=== PATIENT | male | born 1975 | race African-American/Black ===

== ENCOUNTER 2018-07-03 10:09 | Emergency (ER) | payer SELFPAY ==
[2018-07-03] MEDS ORDERED: Acetaminophen 500 MG TAB ONE (10:48)
== END 2018-07-03 11:52 | disposition home or self-care (01) ==
LOC: ERS 10:09
DX: J11.1 Influenza due to unidentified influenza virus with other respiratory manifestations (principal); F31.9 Bipolar disorder, unspecified; F17.210 Nicotine dependence, cigarettes, uncomplicated
CPT/HCPCS: 87804; 99283

== ENCOUNTER → 2018-10-25 | Emergency (ER) | payer SELFPAY ==
[~2018-10-25] MED LIST: Acetaminophen 500 MG TAB ONE; Ibuprofen 200 MG TAB ONE; Lorazepam 1 MG TAB ONE; Lorazepam 2 MG/ML VIAL ONE; Nicotine 7 MG PATCH TOP SCH; Nortriptyline HCl 25 MG CAP PO SCH; OXcarbazepine 300 MG TAB PO SCH; hydrOXYzine 25 MG TAB ONE
[2018-10-25 11:40] LABS: #Basophils 0.1 thou/uL (0.0-0.2); #Eosinphils 0.1 thou/uL (0.0-0.7); #Lymphocytes 1.5 thou/uL (1.20-3.40); #Monocytes 0.5 thou/uL (0.11-0.59); #Neutrophils 3.9 thou/uL (1.40-6.50); %Basophils 0.9 % (0.0-1.0); %Eosinophils 2.4 % (0.0-10.0); %Lymphocytes 24.3 % (21.0-51.0); %Monocytes 8.5 % (0.0-10.0); %Neutrophils 63.9 % (42.0-75.0); Hemoglobin 15.3 g/dL (14.0-18.0); Mean Corpuscular HGB CONC 31.8 g/dL (32.0-36.0); Mean Corpuscular Hemoglobin 25.9 pg (27.0-31.0); Mean Corpuscular Volume 81.7 fL (78.0-98.0); Mean Platelet Volume 7.2 fL (7.4-10.4); Platelet Count 296 thou/uL (130-400); RBC Distribution Width 12.4 % (11.5-14.5); White Blood Cell (WBC) Count 6.1 thou/uL (4.8-10.8)
[2018-10-25 12:08] LABS: Bilirubin Small (Negative); Blood, Urine Negative (Negative); Clarity CLEAR (Clear); Glucose, Urine (Dipstick) Negative (Negative); Leukocyte Negative (Negative); Nitrite Negative (Negative); Protein, Urine (Dipstick) Negative (Neg-Trace)
[2018-10-25 12:09] LABS: ALT (SGPT) 18 U/L (8-55); AST (SGOT) 18 U/L (5-34); Acetaminophen Less than 6.0 mcg/mL (10.0-30.0); Albumin 4.2 g/dL (3.5-5.0); Alcohol Less than 10 mg/dL (Less than 10); Alkaline Phosphatase 79 U/L (40-150); Anion Gap 12 mmol/L (10-20); BUN (Urea Nitrogen) 6 mg/dL (8.9-20.6); Bilirubin, Total 0.5 mg/dL (0.2-1.2); CK (CPK) 284 U/L (30-200); Calc. Creatinine Clearance 0 mL/min (70-130); Calcium 9.7 mg/dL (7.8-10.44); Carbon Dioxide 28 mmol/L (22-29); Chloride 106 mmol/L (98-107); Estimated GFR-MDRD Greater than 90; Globulin 3.2 g/dL (2.4-3.5); Glucose 92 mg/dL (70-105); Potassium 3.7 mmol/L (3.5-5.1); Protein, Total 7.4 g/dL (6.0-8.3); Salicylate Less than 8.0 mg/dL (15.0-30.0); Sodium 142 mmol/L (136-145)
[2018-10-25 12:30] LABS: Amphetamine Not Detected (NotDetected); Barbiturates Screen Not Detected (NotDetected); Benzodiazepine Screen Not Detected (NotDetected); Cocaine Metabolite Screen Detected (NotDetected); Medtox Control Line Valid? VALID (VALID); Medtox Reader # READER 1; Methadone Not Detected (NotDetected); Methamphetamine Not Detected (NotDetected); Opiate Screen Not Detected (NotDetected); Oxycodone Screen Not Detected (NotDetected); Phencyclidine (PCP) Detected (NotDetected); THC/Cannabinoid Screen Detected (NotDetected); Tricyclic Screen Not Detected (NotDetected)
== END ==
LOC: ERS 10:48
DX: T42.72XA Poisoning by unspecified antiepileptic and sedative-hypnotic drugs, intentional self-harm, initial encounter (principal); F17.210 Nicotine dependence, cigarettes, uncomplicated; F31.9 Bipolar disorder, unspecified; Z79.899 Other long term (current) drug therapy
CPT/HCPCS: 36415; 80053; 80306; 80307; 81003; 82550; 84443; 85025; 93005; 96372; J2060

== ENCOUNTER 2019-04-28 09:26 | Emergency (ER) | payer SELFPAY ==
--- NOTE | 2019-04-28 10:18 | RAD ---
XR Hip Lt 2-3 View: 04/28/2019 9:55 AM CLINICAL INDICATION: Pain COMPARISON: None. FINDINGS: Fracture:No fracture. Arthropathy:Mild osteoarthritis Incidental findings:None of significance. IMPRESSION: 1. No acute osseous abnormality.
[2019-04-28 10:22] LABS: Bilirubin Negative (Negative); Blood, Urine Negative (Negative); Clarity Clear (Clear); Glucose, Urine (Dipstick) Normal (Negative); Leukocyte Negative Leu/uL (Negative); Nitrite Negative (Negative); Protein, Urine (Dipstick) Negative (Neg-Trace); Urobilinogen 3 mg/dL (Less than 2)
[2019-04-28] MEDS ORDERED: Ketorolac Tromethamine 30 MG/ML VIAL ONE (10:48)
== END 2019-04-28 10:54 | disposition home or self-care (01) ==
LOC: ERS 09:26
DX: M25.552 Pain in left hip (principal); F17.210 Nicotine dependence, cigarettes, uncomplicated
CPT/HCPCS: 81003; 96372; J1885

== ENCOUNTER 2019-05-19 09:23 | Emergency (ER) | payer SELFPAY ==
[2019-05-19 09:59] LABS: #Eosinphils 0.1 thou/uL (0.0-0.7); #Lymphocytes 0.8 thou/uL (1.20-3.40); #Monocytes 0.5 thou/uL (0.11-0.59); #Neutrophils 5.4 thou/uL (1.40-6.50); %Basophils 0.6 % (0.0-1.0); %Eosinophils 1.3 % (0.0-10.0); %Lymphocytes 12.2 % (21.0-51.0); %Monocytes 6.8 % (0.0-10.0); %Neutrophils 79.1 % (42.0-75.0); Hemoglobin 16.5 g/dL (14.0-18.0); Mean Corpuscular HGB CONC 33.3 g/dL (32.0-36.0); Mean Corpuscular Hemoglobin 26.6 pg (27.0-31.0); Mean Corpuscular Volume 79.8 fL (78.0-98.0); Mean Platelet Volume 7.4 fL (7.4-10.4); Platelet Count 279 thou/uL (130-400); Red Blood Cell (RBC) Count 6.19 mill/uL (4.70-6.10); White Blood Cell (WBC) Count 6.9 thou/uL (4.8-10.8)
[2019-05-19 10:18] LABS: ALT (SGPT) 18 U/L (8-55); AST (SGOT) 22 U/L (5-34); Acetaminophen Less than 6.0 mcg/mL (10.0-30.0); Albumin 4.3 g/dL (3.5-5.0); Alcohol Less than 10 mg/dL (Less than 10); Alkaline Phosphatase 94 U/L (40-110); Anion Gap 12 mmol/L (10-20); BUN (Urea Nitrogen) 8 mg/dL (8.9-20.6); Bilirubin, Total 0.5 mg/dL (0.2-1.2); Calc. Creatinine Clearance 0 mL/min (70-130); Calcium 9.4 mg/dL (7.8-10.44); Carbon Dioxide 26 mmol/L (22-29); Chloride 110 mmol/L (98-107); Estimated GFR-MDRD Greater than 90; Globulin 3.3 g/dL (2.4-3.5); Glucose 113 mg/dL (70-105); Potassium 3.8 mmol/L (3.5-5.1); Protein, Total 7.6 g/dL (6.0-8.3); Salicylate Less than 8.0 mg/dL (15.0-30.0); Sodium 144 mmol/L (136-145)
--- NOTE | 2019-05-19 10:31 | CT ---
Head CT without contrast 05/19/2019: COMPARISON: 08/25/2005 HISTORY: Altered mental status TECHNIQUE: Axial CT imaging at 5 mm intervals from vertex through skull base without contrast FINDINGS: Imaged paranasal sinuses/mastoid air cells well-aerated. No displaced calvarial fracture, i ntracranial hemorrhage, midline shift, or mass effect. IMPRESSION: No acute findings.
[2019-05-19 12:02] LABS: Amphetamine Detected (NotDetected); Barbiturates Screen Not Detected (NotDetected); Benzodiazepine Screen Not Detected (NotDetected); Cocaine Metabolite Screen Detected (NotDetected); Medtox Control Line Valid? VALID (VALID); Medtox Reader # READER 1; Methadone Not Detected (NotDetected); Methamphetamine Not Detected (NotDetected); Opiate Screen Not Detected (NotDetected); Oxycodone Screen Not Detected (NotDetected); Phencyclidine (PCP) Detected (NotDetected); THC/Cannabinoid Screen Not Detected (NotDetected); Tricyclic Screen Not Detected (NotDetected)
== END 2019-05-19 12:55 | disposition home or self-care (01) ==
LOC: ERS 09:23
DX: F19.20 Other psychoactive substance dependence, uncomplicated (principal); F32.9 Major depressive disorder, single episode, unspecified; F17.210 Nicotine dependence, cigarettes, uncomplicated; Z79.899 Other long term (current) drug therapy
CPT/HCPCS: 70450; 80053; 80306; 80307; 84443; 85025; 93005

== ENCOUNTER 2019-05-27 15:57 | Inpatient (IN) | payer SELFPAY ==
[2019-05-27] MEDS ORDERED: Lorazepam 2 MG/ML VIAL ONE (16:02)
[2019-05-27 16:31] LABS: #Eosinphils 0.1 thou/uL (0.0-0.7); #Monocytes 0.6 thou/uL (0.11-0.59); #Neutrophils 2.9 thou/uL (1.40-6.50); %Basophils 0.2 % (0.0-1.0); %Eosinophils 1.4 % (0.0-10.0); %Lymphocytes 21.9 % (21.0-51.0); %Monocytes 13.1 % (0.0-10.0); %Neutrophils 63.4 % (42.0-75.0); Hemoglobin 15.8 g/dL (14.0-18.0); Mean Corpuscular Hemoglobin 27.1 pg (27.0-31.0); Mean Corpuscular Volume 79.7 fL (78.0-98.0); Mean Platelet Volume 7.7 fL (7.4-10.4); Platelet Count 208 thou/uL (130-400); Red Blood Cell (RBC) Count 5.85 mill/uL (4.70-6.10); White Blood Cell (WBC) Count 4.5 thou/uL (4.8-10.8)
[2019-05-27 16:51] LABS: ALT (SGPT) 23 U/L (8-55); AST (SGOT) 25 U/L (5-34); Alkaline Phosphatase 72 U/L (40-110); Anion Gap 9 mmol/L (10-20); BUN (Urea Nitrogen) 9 mg/dL (8.9-20.6); Bilirubin, Total 0.6 mg/dL (0.2-1.2); CK (CPK) 417 U/L (30-200); Calc. Creatinine Clearance 0 mL/min (70-130); Calcium 9.2 mg/dL (7.8-10.44); Carbon Dioxide 30 mmol/L (22-29); Chloride 110 mmol/L (98-107); Estimated GFR-MDRD 78; Globulin 2.2 g/dL (2.4-3.5); Glucose 87 mg/dL (70-105); Potassium 3.7 mmol/L (3.5-5.1); Protein, Total 6.2 g/dL (6.0-8.3); Sodium 145 mmol/L (136-145)
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
[2019-05-27 17:40] LABS: Bilirubin Negative (Negative); Blood, Urine Negative (Negative); Clarity Clear (Clear); Glucose, Urine (Dipstick) Normal (Negative); Leukocyte Negative Leu/uL (Negative); Nitrite Negative (Negative); Protein, Urine (Dipstick) 10 mg/dL (Neg-Trace); Urobilinogen 3 mg/dL (Less than 2)
[2019-05-27 17:50] LABS: Amphetamine Not Detected (NotDetected); Barbiturates Screen Not Detected (NotDetected); Benzodiazepine Screen Not Detected (NotDetected); Cocaine Metabolite Screen Detected (NotDetected); Medtox Control Line Valid? VALID (VALID); Medtox Reader # READER 1; Methadone Not Detected (NotDetected); Methamphetamine Not Detected (NotDetected); Opiate Screen Not Detected (NotDetected); Oxycodone Screen Not Detected (NotDetected); Phencyclidine (PCP) Detected (NotDetected); THC/Cannabinoid Screen Detected (NotDetected); Tricyclic Screen Not Detected (NotDetected)
--- NOTE | 2019-05-27 22:11 | CT ---
Exam: Head CT without contrast HISTORY: Drug use, now unresponsive COMPARISON: 05/19/2019 FINDINGS: Hemorrhage: No intraparenchymal hemorrhage or extra-axial hematoma. Brain parenchyma: Cortical arredondo-white matter differentiation is preserved. No mass effect or midline shift. Basilar cisterns are patent. Ventricular system: Ventricles and sulci are patent and symmetric. Calvarium: Intact. Sinuses and mastoid air cells: Adequate aeration. IMPRESSION: No acute intracranial process.
[2019-05-28 00:59] VITALS: BMI 29.2
[2019-05-28 00:59] LABS: Actual Bicarbonate (HCO3a) 26.1 mEq/L (22-28); Analyzer IN Cardio OR; Base Excess (BEa) 0.9 mEq/L (-2.0 to +3.0); CO2 Tension 43.5 mmHg (35.0-45.0); Calcium, Ionized 1.19 mmol/L (1.12-1.30); Carboxyhemoglobin (COHb) 1.8 gm% (0.0-3.0); Hemoglobin (Hb) 15.7 g/dL (14.0-18.0); O2 Tension (PaO2) 76.2 mmHg (80.0-100.0); Potassium - ABG Lab 3.95 mmol/L (3.70-5.30)
[2019-05-28 01:00] LABS: ALV-art Gradient 19.155 (0-20); Puncture Site RRA
[2019-05-28] MEDS: Sodium Chloride 0.9% 1,000 ML IV SCH ×3 (03:42→12:42)
[2019-05-28] MEDS ORDERED: Ondansetron PF 4 MG/2 ML Vial IVP PRN (12:03)
[2019-05-28] MEDS ORDERED: Bisacodyl 5 MG TAB PO PRN (12:03)
[2019-05-28] MEDS: Lorazepam 2 MG/ML VIAL SLOW IVP PRN ×2 (12:42→20:41)
[2019-05-28] MEDS: Acetaminophen 325 MG TAB PO PRN (12:42)
[2019-05-28] MEDS ORDERED: Piperacillin/Tazobactam 4.5 GM in Sodium Chloride 0.9% 100 ML IVPB SCH (14:00)
--- NOTE | 2019-05-28 15:04 | HP ---
PRIMARY CARE PROVIDER: Unknown. CHIEF COMPLAINT: Altered mental status. HISTORY OF PRESENT ILLNESS: Mr. Holguin is a 43-year-old gentleman, who was seen at [facility] on May 28, 2019. The patient is confused, unable to provide any significant history. Collateral history was obtained from discussion with emergency room staff and review of medical records. The patient was brought to the emergency room for altered mental status and a possible PCP overdose. He was transferred from [facility]. EMS was called because he had a cough and frothing at the mouth. He was also reportedly combative. REVIEW OF SYSTEMS: Could not be completed because of the patient's altered mental status. PAST MEDICAL HISTORY: Unable to obtain. PAST SURGICAL HISTORY: Back surgery. PSYCHIATRIC HISTORY: Depression and bipolar disorder. SOCIAL HISTORY: The patient uses marijuana. He is a former drug user. He drinks alcohol every week and smokes one pack of cigarettes a day. FAMILY HISTORY: Unable to obtain. KNOWN ALLERGIES: No known drug allergies. CURRENT MEDICATIONS: 1. Trileptal 150 mg two times a day. 2. Zyprexa 5 mg two times a day. 3. Lexapro 10 mg daily. 4. Abilify 10 mg daily. PHYSICAL EXAMINATION: GENERAL: On examination, Mr. Holguin is awake, alert, not in acute distress. VITAL SIGNS: Temperature on the telemetry floor is 100.3 degrees Fahrenheit. He was tachycardic earlier with a pulse of 101, currently 93. Blood pressure is 121/62. Respiratory rate is 18 and oxygen saturation 97% on room air. EYES: No scleral icterus, no conjunctival pallor. ENT: Moist mucosal membranes. No oropharyngeal erythema or exudates. NECK: Supple, nontender, trachea is midline. RESPIRATORY: Accessory muscles of breathing are not active. Chest wall movements are symmetric bilaterally. Lungs are clear to auscultation without wheeze, rhonchi, or crepitations. CARDIOVASCULAR: S1 and S2 are heard, regular. Peripheral pulses palpable. NEUROLOGIC: Full neurologic examination not possible secondary to the patient's noncooperation. No facial droop. Deep tendon reflexes 2+. MUSCULOSKELETAL: The patient is moving all 4 extremities. SKIN: No rashes. LYMPHATIC: No cervical lymphadenopathy. PSYCHIATRIC: Normal mood, normal affect, the patient is oriented to person only , not to place or time. LABORATORY DATA: Mr. Holguin' labs and investigations were reviewed. He has leukopenia with 4500 white cells. Hemoglobin and platelet count are normal. Sodium and potassium are normal. Creatinine is normal. CK is elevated at 417. LFTs are unremarkable. Urinalysis is negative for nitrite and leukocyte esterase. Urine toxicology screen is positive for phencyclidine, cocaine, and cannabinoids. Electrocardiogram by my review showed sinus tachycardia, no ST changes to suggest an acute coronary syndrome. Chest x-ray by my review did not show any pulmonary infiltrates. He also had noncontrast CT scan of the brain, which was unremarkable. ASSESSMENT AND PLAN: Mr. Holguin is a 43-year-old gentleman, who was seen at [facility] on May 28, 2019. His problem list includes : 1. Acute metabolic encephalopathy: Mr. Holguin is presenting with acute metabolic encephalopathy, most likely secondary to recreational drug use. He will be admitted to the hospital for further management. [facility] Control [facility] is being contacted for help with management. 2. Sepsis: Mr. Holguin is also presenting with sepsis, presumably secondary to aspiration pneumonia. He will be started on empiric antibiotics. We will also check blood cultures. 3. Tobacco abuse: The patient will be counseled regarding tobacco cessation when he is more alert. 4. Recreational drug use: The patient will be counseled regarding cessation when he is more alert. Many thanks for allowing me to participate in your patient's care. Please feel free to contact me with any questions or concerns. LEVEL OF RISK: High. LEVEL OF COMPLEXITY: High. Job ID: [id number] MTDD
[2019-05-28] MEDS: metroNIDAZOLE 500 MG in Premix Bag 1 BAG IVPB SCH ×2 (15:24→21:34)
[2019-05-28] MEDS: Piperacillin/Tazobactam 4.5 GM in Sodium Chloride 0.9% 100 ML IVPB SCH (16:52)
[2019-05-28] MEDS: Guaifenesin DM 100-10/5 ML UDCUP PO PRN ×2 (16:52→21:32)
[2019-05-28] MEDS: OLANZapine 5 MG TAB PO SCH (20:41)
[2019-05-29] MEDS: Piperacillin/Tazobactam 4.5 GM in Sodium Chloride 0.9% 100 ML IVPB SCH ×3 (00:24→16:45)
[2019-05-29] MEDS: Sodium Chloride 0.9% 1,000 ML IV SCH ×3 (01:33→20:31)
[2019-05-29] MEDS ORDERED: metroNIDAZOLE 500 MG/100 ML BAG ONE (05:23)
[2019-05-29] MEDS: Escitalopram Oxalate 10 mg Tablet PO SCH (10:00)
[2019-05-29] MEDS: metroNIDAZOLE 500 MG in Premix Bag 1 BAG IVPB SCH ×2 (15:02→19:22)
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
[2019-05-29 17:34] LABS: Anion Gap 10 mmol/L (10-20); BUN (Urea Nitrogen) 8 mg/dL (8.9-20.6); Calc. Creatinine Clearance 78 mL/min (70-130); Calcium 8.5 mg/dL (7.8-10.44); Carbon Dioxide 26 mmol/L (22-29); Chloride 109 mmol/L (98-107); Estimated GFR-MDRD 67; Glucose 96 mg/dL (70-105); Potassium 4.5 mmol/L (3.5-5.1); Sodium 140 mmol/L (136-145)
--- NOTE | 2019-05-29 17:47 | PDOC.HOSPP ---
- Subjective Encounter Date: 05/29/19 Encounter Time: 17:45 Subjective: Pt seen for followup re: aspiration. Cough+, yellow sputum+. - Objective Vital Signs & Weight: Vital Signs (12 hours) Temp Pulse Resp BP Pulse Ox 05/29/19 16:00 98.2 F 81 18 152/82 H 100 05/29/19 11:35 98.0 F 96 18 116/76 99 Weight Weight 176 lb I&O: 05/28/19 05/29/19 05/30/19 06:59 06:59 06:59 Intake Total 800 800 Output Total 950 Balance -150 800 Result Diagrams: 05/27/19 16:17 05/29/19 05:21 Additional Labs: Labs and MARs reviewed by sd Hospitalist ROS - Review of Systems Respiratory: reports: cough, sputum. denies: dry, shortness of breath, hemoptysis, SOB with excertion, pleuritic pain, wheezing Cardiovascular: denies: chest pain, palpitations, orthopnea, paroxysmal noc. dyspnea, edema, light headedness Gastrointestinal: denies: nausea, vomiting, abdominal pain, diarrhea, constipation, melena, hematochezia - Medication Medications: Active Medications Generic Name Dose Route Start Last Admin Trade Name Freq PRN Reason Stop Dose Admin Acetaminophen 650 mg 05/28/19 12:03 05/28/19 12:42 Tylenol PO 650 mg Q4H PRN Administration Headache/Fever/Mild Pain (1-3) Escitalopram Oxalate 10 mg 05/29/19 09:00 05/29/19 10:00 Lexapro PO 10 mg DAILY FE Administration Guaifenesin/Dextromethorphan 15 ml 05/28/19 15:35 05/28/19 21:32 Robitussin Dm PO 15 ml Q4H PRN Administration Cough Sodium Chloride 1,000 mls @ 100 mls/hr 05/28/19 12:15 05/29/19 15:02 Normal Saline 0.9% IV 1,000 mls .Q10H FE Administration Lorazepam 0.5 mg 05/28/19 12:02 05/28/19 20:41 Ativan SLOW IVP 0.5 mg Q6H PRN Administration Anxiety/Agitation Olanzapine 10 mg 05/28/19 21:00 05/28/19 20:41 Zyprexa PO 10 mg HS FE Administration Sodium Chloride 10 ml 05/28/19 21:00 05/29/19 17:39 Flush - Normal Saline IVF Not Given Q12HR FE - Exam General Appearance: NAD Eye: anicteric sclera ENT: moist mucosa Neck: supple Heart: RRR Respiratory: CTAB Gastrointestinal: soft, non-tender Extremities: no clubbing Psychiatric: normal affect, normal behavior, A&O x 3 Hosp A/P (1) Aspiration into airway Code(s): T17.908A - UNSP FB IN RESP TRACT, PART UNSP CAUSING OTH INJURY, INIT Status: Acute (2) Recreational drug use Code(s): F19.90 - OTHER PSYCHOACTIVE SUBSTANCE USE, UNSPECIFIED, UNCOMPLICATED Status: Chronic - Plan continue antibiotics, out of bed/ambulate Switch to oral antibiotics. :Likely home 24-48 h
[2019-05-29 19:39] LABS: #Eosinphils 0.1 thou/uL (0.0-0.7); #Lymphocytes 0.5 thou/uL (1.20-3.40); #Monocytes 0.5 thou/uL (0.11-0.59); #Neutrophils 5.8 thou/uL (1.40-6.50); %Eosinophils 0.9 % (0.0-10.0); %Lymphocytes 7.6 % (21.0-51.0); %Monocytes 7.4 % (0.0-10.0); Hemoglobin 14.8 g/dL (14.0-18.0); Mean Corpuscular HGB CONC 33.1 g/dL (32.0-36.0); Mean Corpuscular Hemoglobin 27.1 pg (27.0-31.0); Mean Platelet Volume 8.2 fL (7.4-10.4); Platelet Count 186 thou/uL (130-400); RBC Distribution Width 12.2 % (11.5-14.5); Red Blood Cell (RBC) Count 5.44 mill/uL (4.70-6.10); White Blood Cell (WBC) Count 6.9 thou/uL (4.8-10.8)
[2019-05-29] MEDS: Acetaminophen 325 MG TAB PO PRN (20:32)
[2019-05-29] MEDS: Cefdinir 300 MG CAP PO SCH (20:32)
[2019-05-29] MEDS: metroNIDAZOLE 500 MG TAB PO SCH (20:32)
[2019-05-29] MEDS: OLANZapine 5 MG TAB PO SCH (20:32)
[2019-05-29] MEDS: Guaifenesin DM 100-10/5 ML UDCUP PO PRN (22:33)
[2019-05-30] MEDS: Sodium Chloride 0.9% 1,000 ML IV SCH ×2 (00:56→15:29)
[2019-05-30 06:22] LABS: #Eosinphils 0.2 thou/uL (0.0-0.7); #Lymphocytes 1.6 thou/uL (1.20-3.40); #Monocytes 0.4 thou/uL (0.11-0.59); #Neutrophils 1.6 thou/uL (1.40-6.50); %Basophils 0.9 % (0.0-1.0); %Eosinophils 5.1 % (0.0-10.0); %Lymphocytes 41.9 % (21.0-51.0); %Monocytes 11.2 % (0.0-10.0); %Neutrophils 40.8 % (42.0-75.0); Hemoglobin 15.5 g/dL (14.0-18.0); Mean Corpuscular HGB CONC 32.2 g/dL (32.0-36.0); Mean Corpuscular Hemoglobin 26.8 pg (27.0-31.0); Mean Corpuscular Volume 83.2 fL (78.0-98.0); Mean Platelet Volume 7.5 fL (7.4-10.4); Platelet Count 200 thou/uL (130-400); RBC Distribution Width 12.2 % (11.5-14.5); Red Blood Cell (RBC) Count 5.79 mill/uL (4.70-6.10); White Blood Cell (WBC) Count 3.9 thou/uL (4.8-10.8)
[2019-05-30 06:41] LABS: Anion Gap 11 mmol/L (10-20); BUN (Urea Nitrogen) 5 mg/dL (8.9-20.6); Calc. Creatinine Clearance 114 mL/min (70-130); Calcium 8.9 mg/dL (7.8-10.44); Carbon Dioxide 28 mmol/L (22-29); Chloride 111 mmol/L (98-107); Estimated GFR-MDRD Greater than 90; Glucose 94 mg/dL (70-105); Potassium 4.4 mmol/L (3.5-5.1); Sodium 146 mmol/L (136-145)
[2019-05-30] MEDS: metroNIDAZOLE 500 MG TAB PO SCH ×2 (09:37→15:28)
[2019-05-30] MEDS: Cefdinir 300 MG CAP PO SCH (09:38)
[2019-05-30] MEDS: Escitalopram Oxalate 10 mg Tablet PO SCH (09:39)
[2019-05-30] MEDS ORDERED: Nicotine 14 MG PATCH TD SCH (10:00)
[2019-05-30 12:53] VITALS: BP 120/56; TEMP 98
--- NOTE | 2019-05-30 15:29 | DIS ---
DATE OF ADMISSION: 05/29/2019 DATE OF DISCHARGE: 05/30/2019 PRIMARY CARE PROVIDER: Unknown. DISCHARGE DIAGNOSES: 1. Aspiration. 2. Recreational drug use. 3. Acute metabolic encephalopathy. 4. Sepsis. 5. Acute kidney injury. 6. Rhabdomyolysis. CONDITION OF PATIENT ON THE DAY OF DISCHARGE: Stable. I assessed Mr. Holguin on the day of discharge. He denies any chest pain or shortness of breath. Vital signs are stable. S1 and S2 are heard, regular. Lungs are clear to auscultation bilaterally. HISTORY OF PRESENT ILLNESS: Mr. Holguin is a pleasant 43-year-old gentleman, who was admitted to [facility] on May 27, 2019 for acute metabolic encephalopathy and sepsis. Circumstances around his admission were questionable for aspiration. Urine drug screen was positive for phencyclidine, cocaine metabolites, and cannabinoids. He was treated with intravenous fluids and antibiotics. Acute metabolic encephalopathy, resolved. He is ambulating well in the hallways. He has been evaluated by [facility] and has been recommended for discharge to home. DISCHARGE MEDICATIONS: 1. Lexapro 10 mg daily. 2. Olanzapine 10 mg at bedtime. 3. Trazodone 100 mg at bedtime. 4. Omnicef 300 mg two times a day for 1 week. 5. Flagyl 500 mg three times a day for 1 week. 6. Nicotine patch 14 mg patch daily. Many thanks for allowing me to participate in your patient's care. Please feel free to contact me with any questions or concerns. On the day of discharge, Mr. Holguin has white count of 3900, hemoglobin 15.5, platelet count 200,000. Sodium 146, potassium 4.4, and creatinine 0.95. Creatinine was elevated at 1.40 on May 29, 2019. Mr. Holguin also had elevated creatine kinase on May 27, 2019. He has been advised to maintain good oral intake. He has been advised to stop recreational drug use and tobacco use. He has also been advised to follow up with primary care provider in 3 to 5 days' time for a final blood culture results. Preliminary blood culture results are negative. DISCHARGE DESTINATION: Home. TIME SPENT: Total amount of time spent coordinating this discharge: 32 minutes. Job ID: [id number]
== END 2019-05-30 15:50 | disposition home or self-care (01) | DRG 871 ==
LOC: ERS 15:57 → 2NO 05-28 00:17 → OBSVTOIN 05-29 16:42
PROVIDERS: ADMIT Internal Medicine; ATTEND Internal Medicine
DX: A41.9 Sepsis, unspecified organism (principal); G92 Toxic encephalopathy; N17.9 Acute kidney failure, unspecified; M62.82 Rhabdomyolysis; F32.9 Major depressive disorder, single episode, unspecified; F41.9 Anxiety disorder, unspecified; F17.210 Nicotine dependence, cigarettes, uncomplicated; F19.90 Other psychoactive substance use, unspecified, uncomplicated; Z98.890 Other specified postprocedural states; Z79.899 Other long term (current) drug therapy
CPT/HCPCS: 36415; 70450; 71045; 71046; 80048; 80053; 80306; 81003; 82550; 82805; 84484; 85025; 87040; 93005; J2060; J2543; J3490

== ENCOUNTER 2019-12-01 16:41 | Emergency (ER) | payer SELFPAY | END 2019-12-01 18:15 | disposition left against medical advice (07) | LOC: ERS 16:41 | DX: Z53.21 Procedure and treatment not carried out due to patient leaving prior to being seen by health care provider (principal) ==

== ENCOUNTER 2020-01-03 21:19 | Emergency (ER) | payer OTHER, SELFPAY ==
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
[2020-01-05 12:30] LABS: SARS-CoV-2 MS2 Positive; SARS-CoV-2 N Gene Negative; SARS-CoV-2 S Gene Negative; SARS-CoV-2 orf1ab Negative
== END 2020-01-03 22:30 | disposition home or self-care (01) ==
LOC: ERS 21:19
DX: R05 Cough (principal); R50.9 Fever, unspecified; M79.10 Myalgia, unspecified site; R06.02 Shortness of breath; Z20.828 Contact with and (suspected) exposure to other viral communicable diseases; F31.9 Bipolar disorder, unspecified; F17.210 Nicotine dependence, cigarettes, uncomplicated
CPT/HCPCS: 71045; 87635; U0003

== ENCOUNTER 2020-05-04 15:26 | Emergency (ER) | payer SELFPAY ==
--- NOTE | 2020-05-04 16:30 | CT ---
CT BRAIN NONCONTRAST: DATE: 05/04/2020 HISTORY: 44-year-old female with altered mental status FINDINGS: There is no evidence of acute intra-axial or extra-axial hemorrhage. There is no midline shift or any other mass effect. There is no extra-axial fluid collection. There is no evidence of obstructive hydrocephalus. Calvarium is intact. IMPRESSION: No acute intracranial findings.
[2020-05-04 16:38] LABS: #Basophils 0.1 thou/uL (0.0-0.2); #Eosinphils 0.2 thou/uL (0.0-0.7); #Lymphocytes 1.8 thou/uL (1.20-3.40); #Monocytes 0.6 thou/uL (0.11-0.59); #Neutrophils 3.8 thou/uL (1.40-6.50); %Eosinophils 3.1 % (0.0-10.0); %Lymphocytes 28.3 % (21.0-51.0); %Monocytes 8.6 % (0.0-10.0); %Neutrophils 59.1 % (42.0-75.0); Hemoglobin 17.8 g/dL (14.0-18.0); Mean Corpuscular Hemoglobin 27.5 pg (27.0-31.0); Mean Corpuscular Volume 80.7 fL (78.0-98.0); Mean Platelet Volume 7.2 fL (7.4-10.4); Platelet Count 256 thou/uL (130-400); RBC Distribution Width 12.1 % (11.5-14.5); Red Blood Cell (RBC) Count 6.48 mill/uL (4.70-6.10); White Blood Cell (WBC) Count 6.4 thou/uL (4.8-10.8)
[2020-05-04 17:00] LABS: ALT (SGPT) 21 U/L (8-55); AST (SGOT) 18 U/L (5-34); Albumin 4.1 g/dL (3.5-5.0); Alkaline Phosphatase 82 U/L (40-110); Anion Gap 11 mmol/L (10-20); BUN (Urea Nitrogen) 8 mg/dL (8.9-20.6); Bilirubin, Total 0.4 mg/dL (0.2-1.2); Calc. Creatinine Clearance 0 mL/min (70-130); Carbon Dioxide 28 mmol/L (22-29); Chloride 106 mmol/L (98-107); Estimated GFR-MDRD Greater than 90; Globulin 2.6 g/dL (2.4-3.5); Glucose 88 mg/dL (70-105); Potassium 4.1 mmol/L (3.5-5.1); Protein, Total 6.7 g/dL (6.0-8.3); Sodium 141 mmol/L (136-145)
[2020-05-04 17:01] LABS: Acetaminophen Less than 6.0 mcg/mL (10.0-30.0); Alcohol Less than 10 mg/dL (Less than 10); CK (CPK) 136 U/L (30-200); Salicylate Less than 8.0 mg/dL (15.0-30.0)
[2020-05-04 17:42] LABS: Amphetamine Detected (NotDetected); Barbiturates Screen Not Detected (NotDetected); Benzodiazepine Screen Not Detected (NotDetected); Cocaine Metabolite Screen Detected (NotDetected); Medtox Control Line Valid? VALID (VALID); Medtox Reader # READER 1; Methadone Not Detected (NotDetected); Methamphetamine Detected (NotDetected); Opiate Screen Not Detected (NotDetected); Oxycodone Screen Not Detected (NotDetected); Phencyclidine (PCP) Detected (NotDetected); THC/Cannabinoid Screen Not Detected (NotDetected); Tricyclic Screen Not Detected (NotDetected)
== END 2020-05-04 18:15 | disposition home or self-care (01) ==
LOC: ERS 15:26
DX: F14.10 Cocaine abuse, uncomplicated (principal); F16.10 Hallucinogen abuse, uncomplicated; F15.10 Other stimulant abuse, uncomplicated; F31.9 Bipolar disorder, unspecified
CPT/HCPCS: 36415; 70450; 80053; 80306; 80307; 82550; 85025

== ENCOUNTER 2020-09-23 02:14 | Emergency (ER) | payer SELFPAY | END 2020-09-23 02:40 | LOC: ERS 02:14 | DX: M79.674 Pain in right toe(s) (principal) | CPT/HCPCS: 99283 ==

== ENCOUNTER 2020-12-10 00:45 | Emergency (ER) | payer SELFPAY | END 2020-12-10 02:08 | LOC: ERS 00:45 | DX: Z02.89 Encounter for other administrative examinations (principal) | CPT/HCPCS: 99282 ==